=== PATIENT | male | born 1980 | race African-American/Black ===

== ENCOUNTER 2018-07-12 15:20 | Outpatient (CLI) | payer BC ==
--- NOTE | 2018-07-12 17:24 | MRI ---
MRI LUMBAR SPINE: 07/12/18 HISTORY: Lumbar radiculopathy, M54.16. Multiplanar and multisequence noncontrast enhanced MRI images of the lumbar spine obtained. RADIOGRAPHIC FINDINGS: T12-L1: Unremarkable. L1-2: There is mild facet hypertrophy. The central canal and neural foramen are patent. L2-3: Mild facet and ligamentum flavum hypertrophy is seen. The central canal and neural foramen are patent. 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 Bilateral facet and ligamentum flavum hypertrophy is pres ent. This results in mild central and lateral recess stenosis. There is moderate left and mild right sided neural foraminal narrowing. There is a small right paracentral focal disc protrusion minimally but not significantly compressing the thecal sac. L4-5: Disc desiccation is seen. Congenitally short pedicles seen. There is a broad based disc bulge r esulting in minimal central and lateral recess stenosis. There is moderate left and mild to moderate right sided neural foraminal narrowing due to the broad based disc bulge and bilateral facet hypertro phy. L5-S1: Bilateral facet hypertrophy is seen. The central canal is patent. The right neural foramen is patent. There is mild left sided neural foraminal narrowing seen. IMPRESSION: 1. Multilevel facet hypertrophic changes with some fluid seen. 2. Small focal disc protrusion in the right L4-5 paracentral region minimally but significantly compressing the thecal sac. POS: [facility]
== END 2018-07-12 15:21 | disposition home or self-care (01) ==
LOC: SCSMRI 15:20
PROVIDERS: ATTEND Anesthesiology Pain Medicine
DX: M51.16 Intervertebral disc disorders with radiculopathy, lumbar region (principal); M47.26 Other spondylosis with radiculopathy, lumbar region
CPT/HCPCS: 72148